=== PATIENT | male | born 1995 | race African-American/Black ===

== ENCOUNTER 2020-04-23 15:35 | Emergency (ER) | payer MEDICAID ==
[~2020-04-23] VITALS: Ht 195.6 cm; Wt 113.4 kg
[2020-04-23] MEDS ORDERED: CLINDAMYCIN 600 MG in IV D5W 100 ML IV ONE (16:00)
[2020-04-23] MEDS ORDERED: BUPIVACAINE 0.25% 75 MG/30 ML VIAL IJ ONE (16:00)
[2020-04-23] MEDS ORDERED: DIPHENHYDRAMINE HCL 12.5 MG/5 ML UDC PO ONE (16:00)
[2020-04-23] MEDS ORDERED: predniSONE 20 MG TABLET PO ONE (16:00)
[2020-04-23] MEDS ORDERED: diphenhydrAMINE HCL 25 MG CAPSULE ONE (16:04)
[2020-04-23] MEDS ORDERED: predniSONE 20 MG TABLET ONE (16:05)
[2020-04-23] MEDS ORDERED: CLINDAMYCIN HCL 150 MG CAPSULE PO ONE (16:30)
--- NOTE | 2020-04-23 16:42 | NUR ---
Patient a/ox4, breathing even and unlabored, no sob noted, needs attended. Patient discharged to home in stable condition. Written and verbal after care instructions given. Patient verbalizes understanding of instruction.
--- NOTE | 2020-04-23 16:50 | NUR ---
Patient discharged to home in stable condition. Written and verbal after care instructions given. Patient verbalizes understanding of instruction.
[2020-04-23 16:51] VITALS: BP 123/52
== END 2020-04-23 16:51 | disposition home or self-care (01) ==
LOC: ER 15:39
DX: K02.9 Dental caries, unspecified (principal); T78.40XA Allergy, unspecified, initial encounter; X58.XXXA Exposure to other specified factors, initial encounter
CPT/HCPCS: 64400; 99284; J3490 ×2; J7512; Q0163 ×2; J7060